=== PATIENT | female | born 1980 | race Caucasian/White ===

== ENCOUNTER 2021-12-26 09:24 | Emergency (ER) | payer OTHER, BC ==
[~2021-12-26] VITALS: Ht 160 cm; Wt 117.9 kg
[2021-12-26] MEDS ORDERED: FLEXERIL PO (11:03)
[2021-12-26] MEDS ORDERED: PREDNISONE50 MG PO (11:03)
[2021-12-26 11:25] VITALS: BP 220/122
== END 2021-12-26 11:25 | disposition home or self-care (01) ==
LOC: M.ERS 09:24
DX: S46.812A Strain of other muscles, fascia and tendons at shoulder and upper arm level, left arm, initial encounter (principal); Z98.51 Tubal ligation status; V49.3XXA Car occupant (driver) (passenger) injured in unspecified nontraffic accident, initial encounter; Y93.89 Activity, other specified; Y92.89 Other specified places as the place of occurrence of the external cause; Y99.8 Other external cause status